=== PATIENT | male | born 1970 | race Caucasian/White ===

== ENCOUNTER 2023-06-29 06:14 | Day surgery (SDC) | payer OTHER ==
[2023-06-29] MEDS ORDERED: Propofol 200 MG/20 ML SDV IV ONE (06:15)
[2023-06-29] MEDS ORDERED: Lidocaine 2% 5 ML SDV IV ONE (06:15)
[2023-06-29] MEDS ORDERED: Lactated Ringers 1,000 ML IV SCH (06:15)
[2023-06-29] MEDS ORDERED: Glycopyrrolate 0.2 MG/ML 5 ML MDV IV ONE (06:15)
[2023-06-29] MEDS ORDERED: Sodium Chloride 0.9% 10 ML Syringe FLUSH PRN (06:15)
[2023-06-29] MEDS ORDERED: Simethicone Drops 40 MG/0.6 ML 30 ML Bottle PO ONE (07:40)
== END 2023-06-29 09:14 | disposition home or self-care (01) ==
LOC: FB.SDS 06:14
PROVIDERS: ATTEND Surgery
DX: Z12.11 Encounter for screening for malignant neoplasm of colon (principal); K51.40 Inflammatory polyps of colon without complications; K57.30 Diverticulosis of large intestine without perforation or abscess without bleeding; K40.90 Unilateral inguinal hernia, without obstruction or gangrene, not specified as recurrent; I10 Essential (primary) hypertension; E66.9 Obesity, unspecified; Z79.899 Other long term (current) drug therapy; Z87.891 Personal history of nicotine dependence; Z68.31 Body mass index [BMI] 31.0-31.9, adult
CPT/HCPCS: 00811; 45385; 88305; A9270; J2704; J3490; J7120